=== PATIENT | female | born 1995 | race African-American/Black ===

== ENCOUNTER 2025-03-03 15:31 | Outpatient (CLI) | payer OTHER, SELFPAY ==
--- OUTSIDE RECORDS SUMMARY | 2025-03-03 15:55 | XMS_ITS | Clinical Summary ---
Author Organization [facility] Address [address] [place] [address] Care Team Providers Care Pole Shaver Helper Name Role Phone Rica Robbins DO Unavailable [phone] No, Physician Primary Care Provider [phone] Lindsay Riley MD Unavailable [phone] Allergies No known active allergies Medications vit 18-eelv-ieckm-d saha 27mg iron- 800 mcg-250 mg capsule Take by mouth daily Active cholecalciferol (Vitamin D3) 1,000 unit capsule Take 1 capsule (1,000 Units total) by mouth daily Active docusate sodium (COLACE) 100 mg capsuleIndicati ons:constipatio n,Stool Softener Take 1 capsule (100 mg total) by mouth 2 (two) times a day 30 capsule 4 Active hydrOXYzine (ATARAX) 25 mg tablet Take 1 tablet (25 mg total) by mouth nightly as needed for anxiety 30 tablet 4 Active ibuprofen (ADVIL,MOTRIN) 600 mg tabletIndicatio ns:Cramps Take 1 tablet (600 mg total) by mouth 3 (three) times a day 30 tablet 4 Active Additional Information Patient not taking.Reported on 09/24/2023 oxyCODONE (ROXICODONE) 5 mg immediate release tabletIndicatio ns:Pain Take 1 tablet (5 mg total) by mouth every 4 (four) hours as needed for pain 10 tablet 4 Active Additional Information Patient not taking.Reported on 09/24/2023 polyethylene glycol (MIRALAX) 17 gram/dose bulk powderIndicatio ns:constipation Take 17 g by mouth daily for 14 days 238 g 4 Active Active Problems Problem Noted Date Diagnosed Date care following delivery 07/23 Overview (08/19/2023): 08/18/23, POD#1 (Shayla) S/p uncomplicated rCS EBL 200 cc, Hgb 14.7 pre-op, post-op CBC pending A (+), Rubella immune Vital signs reviewed and normal Ambulating, tolerating PO, voiding spontaneously, lochia moderate, pain controlled MOF: MOC: Possibly POPs VTE ppx: The patient has the following MAJOR risk factors none and the following MINOR risk factors delivery and parity >/=3. enoxaparin 40 mg daily ordered for VTE prophylaxis. Dispo: Continue routine postoperative care. 08/19/23, POD#2 (Shayla) S/p uncomplicated rCS EBL 200 cc, Hgb 14.7 > 12.1 Vital signs reviewed and normal Ambulating, tolerating PO, voiding spontaneously, lochia moderate, pain controlled PP anxiety, difficulty with sleep: improved with atarax PRN, order sent at discharge MOF: MOC: Possibly POPs, for further discussion at PP visit VTE ppx: The patient has the following MAJOR risk factors none and the following MINOR risk factors delivery and parity >/=3. enoxaparin 40 mg daily ordered for VTE prophylaxis. Dispo: Desires discharge home today Delivery with history of 08/17/2023 39 weeks gestation of 08/17/2023 Uterine size-date discrepancy in third trimester 07/04/2023 Supervision of other normal , antepartu m 02/07/2023 History of 02/07/2023 Resolved Problems Problem Noted Date Diagnosed Date Resolved Date PROM with onset of labor wit hin 24 hours of rupture 09/15/2021 02/07/2023 Full-term premature rupture of membranes with onset of labor within 24 hours of rupture 09/15/2021 02/07/2023 Immunizations Immunization Administration Dates Next Due DTP 07/04/1995,03/21/1994,01/13/1994 ,1993 Hep B, Adolescent or Pediatric 08/14/1994,1993,1993 HiB 07/04/1995,03/21/1994,01/13/1994 ,1993 IPV 02/08/2004 MMR 02/08/2004,08/14/1994 OPV 08/14/1994,01/13/1994,1993 Tdap 01/12/2020 Varicella 02/06/2007 Surgical History Surgery Date Site/Laterality Comments SECTION SECTION SECTION 08/17/2023 Medical History Medical History Date Comments No known health problems Anxiety Family History Medical History Relation Name Comments Breast cancer Neg Hx Colon cancer Neg Hx Ovarian cancer Neg Hx Uterine cancer Neg Hx Social History Tobacco Use Types Packs/Day Years Used Date Smoking Tobacco: Never Smokeless Tobacco: Never Alcohol Use Standard Drinks/Week Comments Yes 0 (1 standard drink = 0.6 oz pur e alcohol) AUDIT-C Answer Date Recorded Q1: How often do you have a drink containing alc ohol? Never 09/15/2021 Average Number of Drinks Not on file 022 Q3: How often do you have si x or more drinks on one occasion? Never 09/15/2021 [place] Depression Scale Answer Date Recorded [place] Depression Scale Total 0 09/18/2023 The thought of harming myself has occurred to me . Never 09/18/2023 Personal Safety Answer Date Recorded Have you ever been in or are you currently in a harmful physical or emotional relationship or is someone making you feel afraid or unsafe? 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 Flavio harvey Complications: Intolera nce,Failure to Progress in Second Stage Delivery Location:[facility] 2021 Term 37w 3d 0h 03m 0h 03m 2.505 kg (5 lb 8.4 oz) M CS-LT ranv Spinal N Livin g 8 9 EDIE AARTI BROWNMariia Flavio harvey, Rica Goldman DO Complications:None Delivery Location:[facility] Main C ampus (MHE L AND D PROCEDURE) 2023 Term 39w 0d 0h 02m 0h 02m 2.75 kg (6 lb 1 oz) M C-Sec tion Spinal N Livin g 8 9 Jose LuisTarun ning ritter, Lindsay Russell MD Complications:None Delivery Location:[facility] Main C ampus (MHE L AND D PROCEDURE) Last Filed Vital Signs Vital Sign Reading Time Taken Comments Blood Pressure 102/60 09/24/2023 4:03 PM CDT Pulse 101 08/19/2023 5:49 AM CDT Temperature 36.7 C (98 F) 08/19/2023 5:49 AM CDT Respiratory Rate 18 08/19/2023 5:49 AM CDT Oxygen Saturation 97% 08/19/2023 5:49 AM CDT Inhaled Oxygen Concentration - - Weight 59.4 kg (131 lb) 09/24/2023 4:03 PM CDT Height 162.6 cm (5' 4) 09/24/2023 4:03 PM CDT Body Mass Index 22.49 09/24/2023 4:03 PM CDT Plan of Treatment Health Maintenance Due Date Last Done Comments Varicella Vaccines (2 of 2 - 13+ 2-dose series) 03/06/2007 02/06/2007 Regular Well Visit/Exam 18-64 06/25/2011 HPV Vaccines (1 - 3-dose SCDM series) 2020 Cervical Cancer Screening 02/08/2024 02/07/2023 Depression Screening 09/17/2024 09/18/2023 Influenza Vaccine (#1) 2024 DTaP/Tdap/Td Vaccine (6 - Td or Tdap) 01/11/2030 01/12/2020, 07/04/1995, 03/21/1994, Additional history exists Hepatitis B Screening Completed 08/14/1994 , 01/13/1994, 1993 Hepatitis C Screening Completed 02/07/2023 Pneumococcal vaccine <65 Aged Out No longer eligible based on patient's age to complete this topic Procedures Procedure Name Priority Date/Time Associated Diagnosis Comments HEPATITIS C ANTIBODY Routine 02/07/2023 1:52 PM CDT Encounter for supervision of other normal in first trimester PAP WITH REFLEX TO HIGH RISK HPV Routine 02/07/2023 12:26 PM CDT Screening for malignant neoplasm of cervix from Last 3 Months or Most Recently Relevant to Health Maintenance Results * Hepatitis C antibody Blood (02/07/2023 1:52 PM CDT) Hep C Ab Nonreactive Nonreactive Comment: Interpretive Data Nonreactive: Antibodies to HCV not detected. Does NOT exclude the possibility of recent exposure to HCV. Equivocal: Equivocal for HCV antibodies. Supplemental molecular testing will be automatically performed to determine infection status in accordance with current CDC screening recommendations. Reactive: Positive for HCV antibodies. This may represent current or past HCV infection. Supplemental molecular testing will be automatically performed to determine current infection status in accordance with current CDC screening recommendations. Interpretive data was last revised on 2019. Blood 02/07/2023 1:52 PM CDT 02/07/2023 6:26 PM CDT Morales Nobles MD LAB MICROBIOLOGY - [facility] AL ORDERABLES Final Result [facility] [address] [facility] Department [place] [address] * Pap with reflex to High Risk HPV and Genotyping (Cytology Component) (02/07/2023 12:26 PM CDT) Endocervical (Pap test) 02/07/2023 12:26 PM CDT 02/09/2023 12:26 PM CDT Narrative PATHOLOGY [facility] - 02/13/2023 10:27 AM CDT [facility] Department of Pathology [address] [place] [id number] Final Report Note to Patients: This report may contain a detailed description of human tissue sent by a health care provider to the laboratory for pathologic evaluation. The content of this report is essential for diagnosis and may provide important critical findings. This information may be unfamiliar to patients to review without a medical professional present. It is advised that the patient review this report in the presence of a health care provider who can answer questions and explain the details. Patient Name: RAMONITA GRIMES Address: [address] [place] [address]- Gender: F : 1995 (Age: 27) Service: Location: N : [id number] [facility] #: [id number] Patient Type: [facility] SPECIMEN Taken: 02/07/2023 Received: 02/09/2023 Accessioned:: 02/09/2023 Reported: 02/13/2023 Physician(s): Morales Nobles M.D. [facility] Diagnosis: SOURCE OF SPECIMEN Imaged Thinprep Pap Test w/ Reflex HPV - Emergency Medical Technician Cytologic Material: STATEMENT OF ADEQUACY - Satisfactory for evaluation; endocervical/transformation zone component present GENERAL CATEGORIZATION: - Negative for intraepithelial lesion or malignancy DEBORAH Trevizo(ASCP) Report Electronically Reviewed and Signed Out By DEBORAH Trevizo(ASCP) 02/13/2023 10:27:43Specimen(s) Received: A: Imaged Thinprep Pap Test w/ Reflex HPV - Emergency Medical Technician Cytologic Material Clinical History: Last Menstrual Period: 11/24/2022 The Pap test is a screening test used to aid in the detection of cervical cancer and its precursors. It should not be the sole means by which malignant and premalignant lesions are diagnosed. Both false negative and false positive results may occur. It also has poor sensitivity for the detection of endometrial lesions and should not be used to evaluate suspected endometrial abnormalities. For these reasons it is most important to obtain Pap tests at regular intervals. The performance characteristics of some immunohistochemical stains, fluorescence in-situ hybridization tests and immunophenotyping by flow cytometry cited in this report (if any) were determined by the Surgical Pathology Department at [facility] as part of an ongoing quality management nurse program and in compliance with federally mandated regulations drawn from the Clinical Laboratory Improvement Act of 1988 (CLIA '88). Some of these tests rely on the use of analyte specific reagents and are subject to specific labeling requirements by the US Food and Drug Administration. Such diagnostic tests may only be performed in a facility that is certified by the Department of Health and Human Services as a high complexity laboratory under CLIA '88. The FDA has determined that such clearance or approval is not necessary. This test is used for clinical purposes. It should not be regarded as investigational or for research. Nevertheless, federal rules concerning the medical use of analyte specific reagents require that the following disclaimer be attached to the report: This test was developed and its performance characteristics determined by the Surgical Pathology Department [facility]. It has not been cleared or approved by the U. S. Food and Drug Administration. Morales Nobles MD LAB CYTOLOGY ORDERABLES Final Result PATHOLOGY [facility] from Last 3 Months or Most Recently Relevant to Health Maintenance Insurance [facility] Member Subscriber Plan / Payer (Ef fective 2020-Present) Name:Ramonita Grimes Relation to Subscriber:Spouse Name:HAI GRIMES Date of :1980 (Home) Address: [address] [place] [address] , [address] [address] Payer ID:[id number] (NAIC) Group ID:Not on file Type: Address: [facility] [address] [place] [address] WEST CLAIMS Advance Directives For more information, please contact: [phone] * Full Code (Latest Code Status on File) Date Activated Date Inactivated Comments 08/17/2023 12:04 PM 08/19/2023 4:28 PM * Full Code Date Activated Date Inactivated Comments 08/17/2023 7:46 AM 08/17/2023 12:04 PM Full CPR in case of cardiopulmonary arrest * Full Code Date Activated Date Inactivated Comments 08/17/2023 7:45 AM 08/17/2023 7:46 AM Full CPR in case of cardiopulmonary arrest * Full Code Date Activated Date Inactivated Comments 09/15/2021 8:42 PM 09/17/2021 3:19 PM * Full Code Date Activated Date Inactivated Comments 09/15/2021 9:42 AM 09/15/2021 8:42 PM Care Teams Pole Shaver Helper Relationship Specialty Start Date End Date No, Physician PCP - General 08/17/23 Rica Robbins DO [address] [place] [address] [phone] Consulting Physician Obstetrics and Gynecology 09/17/21 Lindsay Riley MD [address] [place] [address] [phone] Temple Marker Obstetrics and Gynecology 08/19/23
--- OUTSIDE RECORDS SUMMARY | 2025-03-03 15:55 | XMS_ITS | Clinical Summary ---
Author Organization [facility] Address [address] [place] [address] Care Team Providers Care Acute Care Nursing Assistant Name Role Phone Unavailable Primary Care Provider Unavailabl e Source Comments [facility],non-owned Affiliates and Associated Physician Practices is amultiple site organization consisting of ambulatory clinics and hospital sitesin [place], [place], [place] and [place]. This disclosure is being madepursuant to the Care Everywhere program and may not contain all information available regarding this patient. Last updated 18.[facility] Allergies No known active allergies Social History Tobacco Use Types Packs/Day Years Used Date Smoking Tobacco: Never Assessed Comments No Sex and Gender Information Value Date Recorded Sex Assigned at Not on file Legal Sex Female 3:37 PM CDT Gender Identity Not on file Sexual Orientation Not on file Plan of Treatment Health Maintenance Due Date Last Done Comments HIV SCREENING 2008 HEPATITIS C SCREENING 06/20/2011 DTAP/TDAP/TD VACCINES (1 - Tdap) 2012 HEPATITIS B VACCINE (1 of 3 - 19+ 3-dose series) 2012 HPV VACCINE (1 - 3-dose SCDM series) 2020 DEPRESSION SCREENING 04/23/2024 COVID-19 VACCINE ( - 2023-2 5 season) 2024 INFLUENZA VACCINE (#1) 2024 ZOSTER VACCINE (1 of 2) 06/25/2043 HIB VACCINE Aged Out No longer eligi ble based on patient's age to complete this topic MENINGOCOCCAL (Group B) VACC INE SHARED DECISION-MAKING Aged Out No longer eligibl e based on patient's age to complete this topic MENINGOCOCCAL GROUPS A/C/Y/W VACCINE Aged Out No longer eligible b ased on patient's age to complete this topic PNEUMOCOCCAL VACCINE Aged Out No long er eligible based on patient's age to complete this topic Insurance
--- OUTSIDE RECORDS SUMMARY | 2025-03-03 15:55 | XMS_ITS | Clinical Summary ---
Author Organization [facility] Address [address] [place] [address] Care Team Providers Care Athletic Scout Name Role Phone Ashley Silvestre MD Primary Care Provider [phone] Allergies No known active allergies Medications hydrOXYzine (ATARAX) 25 MG tablet Take 1 tablet (25 mg total) by mouth 3 (three) times daily as needed for Anxiety. 15 tablet 11/02/2022 Active Active Problems Problem Noted Date Diagnosed Date Anxiety Immunizations Immunization Administration Dates Next Due Dtp (Generic) 07/04/1995,03/21/1994,01/13/1994 ,1993 Hepatitis B Pediatric 08/14/1994,01/13/1994,10/21 Hib (Generic) 07/04/1995,03/21/1994,01/13/1994 ,1993 MMR (MMRII) 02/08/2004,08/14/1994 Polio IPV (Ipol) 02/08/2004 Polio Opv (Generic) 08/14/1994,01/13/1994,1993 Tdap (Generic) 01/12/2020 Varicella (Varivax) 02/06/2007 Family History Medical History Relation Comments None Father None Mother Relation Status Comments Father Mother Social History Tobacco Use Types Packs/Day Years Used Date Smoking Tobacco: Never Smokeless Tobacco: Never Tobacco Cessation:Counseling Given: Not Answered Alcohol Use Standard Drinks/Week Comments Not Currently 0 (1 standard drink = 0.6 oz pur e alcohol) PHQ-2 Answer Date Recorded PHQ-2 Score - If the patient scores above 3, please move on to questions 3-9 0 03/10/2021 Comments No Sex and Gender Information Value Date Recorded Sex Assigned at Not on file Legal Sex Female 8:14 PM CDT Gender Identity Not on file Sexual Orientation Not on file Last Filed Vital Signs Vital Sign Reading Time Taken Comments Blood Pressure 114/71 11/02/2022 12:20 PM CDT Pulse 77 11/02/2022 12:20 PM CDT Temperature 36.6 C (97.8 F) 11/02/2022 12:20 PM CDT Respiratory Rate 18 11/02/2022 12:20 PM CDT Oxygen Saturation 100% 11/02/2022 12:20 PM CDT Inhaled Oxygen Concentration - - Weight 49.4 kg (109 lb) 11/02/2022 12:20 PM CDT Height 162.6 cm (5' 4) 11/02/2022 12:20 PM CDT Body Mass Index 18.71 11/02/2022 12:20 PM CDT Plan of Treatment Health Maintenance Due Date Last Done Comments Cervical Cancer Screening Pap Smear (Age 30 to 64) Every 3 Years 1993 Hepatitis C 06/25/2011 HPV Vaccines (1 - 3-dose SCDM series) 2020 Annual Physical 03/10/2022 03/10/2021 Cervical Cancer Screening Pap with HPV Testing (Age 30 to 64) Every 5 Years 06/25/2023 Cervical Cancer Screening with HPV 06/25/2023 COVID-19 Vaccine ( season) 2024 Influenza Adult (#1) 2025 DTaP, Tdap and Td Vaccines (6 - Td or Tdap) 01/11/2030 01/12/2020, 07/04/1995, 03/21/1994, Additional history exists Hepatitis B Vaccines Completed 08/14/1994, 01/13/1994, 1993 Hepatitis A Vaccines Aged Out No long er eligible based on patient's age to complete this topic Meningococcal B Vaccine Aged Out No l onger eligible based on patient's age to complete this topic Meningococcal Vaccine Aged Out No susan brandon eligible based on patient's age to complete this topic Pneumococcal Vaccine: Pediatrics (0 to 5 Years) and At-Risk Patients (6 to 49 Years) Aged Out No longer eligible based on patient's age to complete this topic RSV Immunizations Under 20 Months Aged Out No longer eligible based on patient's age to complete this topic Insurance BLUE [employer]OSS [employer]UE [employer] MEDICAID [facility] Care Teams Athletic Scout Relationship Specialty Start Date End Date Ashley Silvestre MD [address] [place] [address] PCP - General FAMILY PRACTICE 03/10/21
--- OUTSIDE RECORDS SUMMARY | 2025-03-03 15:55 | XMS_ITS | Data Portability ---
Author Organization [facility] Address [address] [place] [address] Care Team Providers Care Rehab Nurse Name Role Phone [facility] Lead Care Manager Assessment No assessment recorded. Plan of Treatment Reminders Order Date Submit Date Provider Last Modified By Organization Details Last Modified Time Details Appointments None recorded. Lab pap, LB 2024 025 [place] [facility], [address] [place], [address], 5 17:28:55 HPV E6+E7 mRNA, qualitative PCR, cervix 2024 025 [facility], [address] [place] [address], [address], 5 15:12:12 streptococc us group B, culture, unspecified specimen 2021 022 [place] [facility], [address] [place], [address], 2 10:02:58 Referral None recorded. Procedures None recorded. Surgeries None recorded. Imaging XR, ankle, 3 or more view - recurrent fdc right ankle pain 2021 022 [facility], [address] [place] [address], [address], 2 17:21:25 Medication Orders None recorded. Patient TargetsNo targets recorded. Patient Instructions Encounter Date Encounter Id Patient Instructions Last Modified By Organization Details Last Modified Time 10/28/2021 [id number] edinburgh depression scale* [email or web address] Not available 11/24/2021 10:08:37 control after counseling [email or web address] Not available 10/28/2021 10:46:35 12/24/2024 [id number] body mass index: care instructions Not available 12/24/2024 16:07:50 learning about control Not available 12/24/2024 16:07:50 Reason for Referral None Reported. Results Created Date Observation Date Name Description Value Unit Range Abnormal Flag Note LastModifiedBy Organization Detail LastModifiedTime 09/06/19 22 09/08/2021 STREP TOCOC CUS, GROUP B CULTU RE streptococcu s, group B culture SEE NOTE STREP TOCOC CUS, GROUP B CULTU RE Micro Numbe r: [id number] Test Statu s: Final Speci men Sourc e: Vagin al/an orect al Speci men Quali ty: Adequ ate Resul t: No group B Strep tococ cus isola fay Note per CDC guide lines optim al recov martin is achie owen by swabb ing both the lower vagin a and rectu m (thro ugh the anal sphin cter) . Not Available [facility] [address] [place], [address], 09/08/2021 10:02:58 12/25/19 25 12/25/2024 HPV HIGH RISK HPV high risk Negati ve negati ve normal The HPV High Risk assay is inten ded for use as co-te sting with cytol ogy and not as a subst itute for regul ar cervi shreya cytol ogy scree eddie. This assay is not inten ded for use as a scree eddie devic e for women under age 30 with kathryn l cervi shreya cytol ogy. Not Available [facility] [address] [place], [address], 12/25/2024 15:12:12 12/25/19 25 12/30/2024 THINP REP TIS PAP clinical information: normal None given Not Available [facility] [address], [address], 12/30/2024 17:28:55 12/25/1912/30/2024 THINP REP TIS PAP LMP: normal NONE GIVEN Not Available [address], [address], 12/30/2024 17:28:55 12/25/1912/30/2024 THINP REP TIS PAP prev. Pap: normal NONE GIVEN Not Available [address], [address], 12/30/2024 17:28:55 12/25/1912/30/2024 THINP REP TIS PAP prev. BX: normal NONE GIVEN Not Available [address], [address], 12/30/2024 17:28:55 12/25/1912/30/2024 THINP REP TIS PAP source: normal Cervi x Not Available [address], [address], 12/30/2024 17:28:55 12/25/1912/30/2024 THINP REP TIS PAP statement of adequacy: normal Satis facto ry for evalu ation . Endoc ervic al/tr ansfo rmati on zone compo nent prese nt. Age and/o r menst rual statu s not provi ded Not Available [address], [address], 12/30/2024 17:28:55 12/25/1912/30/2024 THINP REP TIS PAP interpretati on/result: normal Cytol ogy Resul ts: Negat juan for intra epith elial lesio n or malig yeimi . Not Available [address] [place], [address], 12/30/2024 17:28:55 12/25/192025 THINP REP TIS PAP comment: normal This Pap test has been evalu ated with the ThinP rep(R ) Imagi ng Syste m. Not Available [facility] [address] [place], [address], 12/30/2024 17:28:55 12/25/19 25 12/30/2024 THINP REP TIS PAP cytotechnolo gist: normal MEF, CT( CP) CT Scree eddie Locat ion: [facility] , [facility] [place] [address] CLIA: [id number] Slide prepa ratio n perfo rmed at: [facility], [address] [place], [address] CLIA: [id number] Not Available [facility] [address], [place], [address], 12/30/2024 17:28:55 12/25/19 25 12/30/2024 THINP REP TIS PAP comment EXPLA NATOR Y NOTE: The Pap is a scree eddie test for cervi shreya cance r. It is not a diagn ostic test and is subje ct to false negat juan and false posit juan resul ts. It is most relia ble when a satis facto ry sampl e, regul mina obtai marge, is submi tted with relev ant clini shreya findi ngs and histo ry, and when the Pap resul t is evalu ated along with histo juan and curre nt clini shreya infor matio n. Not Available [facility] [employer] [facility] [address], [place], [address], 12/30/2024 17:28:55 08/09/19 22 08/08/2021 US, obste tric, limit ed No observ ation record ed. [email or web address] [facility] [address], [place], [address], 08/08/2021 14:15:31 08/25/19 22 08/24/2021 US, obste tric, follo w-up No observ ation record ed. [facility] [address], [place], [address], 08/24/2021 23:00:25 09/07/19 22 09/06/2021 imagi ng/di agnos tic resul t No observ ation record ed. [email or web address] [facility] [address] [place], [address], 09/07/2021 18:24:03 11/02/19 22 10/31/2021 XR, ankle , 3 or more view No observ ation record ed. [email or web address] [facility] [address] [place], [address], 11/02/2021 14:55:05 Result Notes None recorded. Problems Name Problem SNOMED Code Status Onset Date Resolution Date Notes Provider Name and Address Organization Details Recorded Time Syphilis test finding 194994308 Completed 201405/25/2015 Encounte r for screenin g for infectio ns with a predomin antly sexual mode of transmis hailee; Progress : Stable Added By: Lea Lemus Add to Current Problems : NO ProblemS tatus: Resolve Not Available [facility] 2 20:36:03 Family history of breast cancer 140998748 Completed 201406/06/2019 Family history of breast cancer; Progress : Stable Added By: Perla Fontenot Add to Current Problems : NO ProblemS tatus: Resolve Family history of malignan t neoplasm of breast; Progress : Stable Added By: Perla Fontenot Add to Current Problems : NO ProblemS tatus: Resolve Not Available [facility] 2 20:36:01 At high risk of sexually transmit fay infectio n 132571084 Completed 201405/25/2015 STD Screenin g; Location : None Severity : Moderate Progress : Stable Added By: Lea Lemus Add to Current Problems : YES ProblemS tatus: Resolve Not Available [facility] 1 19:50:32 Family history of malignan t neoplasm of breast in first degree relative 847076873 Completed 201405/27/2021 Family history of breast cancer; Location : None Severity : Moderate Progress : Stable Added By: Perla Fontenot Add to Current Problems : YES ProblemS tatus: Current Margie arellano, [facility] 2 14:34:37 Acute vaginiti s 48467984 Completed 201405/25/2015 Acute vaginiti s; Progress : Stable Added By: Lea Lemus Add to Current Problems : NO ProblemS tatus: Resolve Bacteria l vaginosi s; Location : None Progress : Stable Added By: Lea Lemus Add to Current Problems : YES ProblemS tatus: Resolve Not Available [facility] 2 20:36:07 Gestatio n less than 9 weeks 464709718 Completed 201912/31/2019 Less than 8 weeks gestatio n of pregnanc y; Progress : Stable Added By: Tami Mendez Add to Current Problems : NO ProblemS tatus: Resolve Not Available [facility] 2 20:35:59 Pregnanc y, childbir th and puerperi um finding Completed 201912/31/2019 Encounte r for supervis ion of normal first pregnanc y, first trimeste r; Progress : Stable Added By: Tami Mendez Add to Current Problems : NO ProblemS tatus: Resolve Not Available [facility] 2 20:36:01 Gestatio n period, 12 weeks 10035191 Completed 201912/31/2019 12 weeks gestatio n of pregnanc y; Progress : Stable Added By: Tami Mendez Add to Current Problems : NO ProblemS tatus: Resolve Not Available [facility] 2 20:36:06 Atypical squamous cells of undeterm ined signific ance on cervical Papanico laou smear 841017445 Completed 201912/13/2020 Atypical squamous cells of undeterm ined signific ance on cytologi c smear of cervix (ASC-US) ; Progress : Stable Added By: Rica Robbins Add to Current Problems : NO ProblemS tatus: Resolve Not Available [facility] 2 20:36:01 Pregnanc y, childbir th and puerperi um finding Completed 201912/31/2019 Encounte r for supervis ion of normal first pregnanc y, second trimeste r; Progress : Stable Added By: Rica Robbins Add to Current Problems : NO ProblemS tatus: Resolve Not Available [facility] 2 20:35:58 Gestatio n period, 16 weeks 93221478 Completed 201912/31/2019 16 weeks gestatio n of pregnanc y; Progress : Stable Added By: Lindsay Smith Add to Current Problems : NO ProblemS tatus: Resolve Not Available [facility] 2 20:36:05 Baseline bradycar shandra 617198507 Completed 201912/31/2019 Diseases of the circulat ory system complica ting pregnanc y, unspecif ied trimeste r; Progress : Stable Added By: Val Sarah Add to Current Problems : NO ProblemS tatus: Resolve Not Available [facility] 2 20:36:02 Gestatio n period, 20 weeks 12240188 Completed 201912/31/2019 20 weeks gestatio n of pregnanc y; Progress : Stable Added By: Wilber Casas Add to Current Problems : NO ProblemS tatus: Resolve Not Available [facility] 2 20:36:07 Antenata l screenin g for malforma tion Completed 201912/31/2019 Encounte r for antenata l screenin g for malforma tions; Progress : Stable Added By: Wilber Casas Add to Current Problems : NO ProblemS tatus: Resolve Not Available [facility] 2 20:36:00 Gestatio n period, 24 weeks 450604790 Completed 201912/31/2019 24 weeks gestatio n of pregnanc y; Progress : Stable Added By: Rica Robbins Add to Current Problems : NO ProblemS tatus: Resolve Not Available [facility] 2 20:36:05 Pregnanc y, childbir th and puerperi um finding Completed 201901/19/2020 Encounte r for supervis ion of normal first pregnanc y, third trimeste r; Progress : Stable Added By: Val Sarah Add to Current Problems : NO ProblemS tatus: Resolve Not Available [facility] 2 20:36:04 Gestatio n period, 28 weeks 31608938 Completed 201912/31/2019 28 weeks gestatio n of pregnanc y; Progress : Stable Added By: Rica Robbins Add to Current Problems : NO ProblemS tatus: Resolve Not Available [facility] 2 20:36:03 Gestatio n period, 30 weeks 12805383 Completed 201912/31/2019 30 weeks gestatio n of pregnanc y; Progress : Stable Added By: Emily Childs Add to Current Problems : NO ProblemS tatus: Resolve Not Available [facility] 2 20:36:00 Uterine size for dates discrepa ncy Completed 201912/31/2019 Uterine size-dominick e discrepa ncy, third trimeste r; Progress : Stable Added By: Rica Robbins Add to Current Problems : NO ProblemS tatus: Resolve Not Available [facility] 2 20:36:04 Gestatio n period, 32 weeks 8936718 Completed 201912/31/2019 32 weeks gestatio n of pregnanc y; Progress : Stable Added By: Rica Robbins Add to Current Problems : NO ProblemS tatus: Resolve Not Available [facility] 2 20:36:05 Gestatio n period, 34 weeks 31223825 Completed 201912/31/2019 34 weeks gestatio n of pregnanc y; Progress : Stable Added By: Rica Robbins Add to Current Problems : NO ProblemS tatus: Resolve Not Available [facility] 2 20:36:01 Gestatio n period, 36 weeks 40461754 Completed 201912/31/2019 36 weeks gestatio n of pregnanc y; Progress : Stable Added By: Lindsay Smith Add to Current Problems : NO ProblemS tatus: Resolve Not Available [facility] 2 20:36:00 Antenata héctor zhao Completed 201912/31/2019 Encounte r for antenata l screenin g for Streptoc occus B; Progress : Stable Added By: Lindsay Smith Add to Current Problems : NO ProblemS tatus: Resolve Encounte r for other specifie d antenata l screenin g; Progress : Stable Added By: Val Sarah Add to Current Problems : NO ProblemS tatus: Resolve; Start Date : 06/06/19 20 Not Available [facility] 2 20:36:02 Gestatio n period, 37 weeks 24658480 Completed 201901/19/2020 37 weeks gestatio n of pregnanc y; Progress : Stable Added By: Deb Painting Add to Current Problems : NO ProblemS tatus: Resolve Not Available [facility] 2 20:36:06 Gestatio n period, 38 weeks 48248914 Completed 201901/19/2020 38 weeks gestatio n of pregnanc y; Progress : Stable Added By: Val Sarah Add to Current Problems : NO ProblemS tatus: Resolve Not Available [facility] 2 20:36:03 Delivery by elective section 371009600 Completed 201902/16/2020 Encounte r for delivery without indicati on; Progress : Stable Added By: Rica Robbins Add to Current Problems : NO ProblemS tatus: Resolve Not Available [facility] 2 20:35:59 Procedur e on genitour inary system Completed 201902/16/2020 Encounte r for surgical aftercar e followin g surgery on the genitour inary system; Progress : Stable Added By: Rica Robbins Add to Current Problems : NO ProblemS tatus: Resolve Not Available [facility] 2 20:36:07 Postoper ative care Completed 201902/16/2020 Encounte r for surgical aftercar e followin g surgery on the genitour inary system; Progress : Stable Added By: Rica Robbins Add to Current Problems : NO ProblemS tatus: Resolve Not Available [facility] 2 20:36:07 Lochia finding Completed 201912/13/2020 Encounte r for routine postpart um follow-u p; Progress : Stable Added By: Rica Robbins Add to Current Problems : NO ProblemS tatus: Resolve Not Available [facility] 2 20:35:59 Human papillom avirus deoxyrib onucleic acid detected , high risk on cervical specimen 761086231 Completed 201912/13/2020 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 ; Progress : Stable Added By: Rica Robbins Add to Current Problems : NO ProblemS tatus: Resolve Not Available [facility] 2 20:35:58 Sampling of vagina for Papanico laou smear Completed 202012/13/2020 Encounte r for gynecolo gical examinat ion (general ) (routine ) without abnormal findings ; Progress : Stable Added By: Rica Robbins Add to Current Problems : NO ProblemS tatus: Resolve Not Available [facility] 2 20:36:06 Finding of regulari ty of menstrua l cycle Completed 202005/27/2021 Irregula r menstrua tion, unspecif ied; Severity : Moderate Progress : Stable Added By: Bushra Draper Add to Current Problems : YES ProblemS tatus: Current Margie Icenogle null, [email or web address] [facility] 2 14:34:41 Miscarri age 15600252 Completed 202005/27/2021 Complete or unspecif ied spontane ous without complica tion; Severity : Moderate Progress : Stable Added By: Pedro Luis Beavers Add to Current Problems : YES ProblemS tatus: Current Margie Icenogle null, [email or web address] 2 14:34:44 Screenin g for malignan t neoplasm of cervix Active 2020 Encounte r for screenin g for malignan t neoplasm of cervix; Progress : Stable Added By: Rica Robbins Add to Current Problems : YES ProblemS tatus: Current Not Available [facility] 2 20:35:58 Pregnanc y [id number] Completed 202010/28/2021 Rica Robbins DO [address] [facility] [place], [address] , [facility] [employer] [facility] 2 11:42:02 Notes:STD Screening (V74.5) ; OnsetDate: 03/26/2015; ResolvedDate: 05/25/2015; Progress: Stable Added By: Lea Rutherford Add to Current Problems: NO ProblemStatus: Resolve Problem Notes None recorded. Procedures Surgical History Date Name Laterality Status Provider Name and Address Organization Details Recorded Time 2 Suture/Stapl e removal completed Rica Robbins DO [address] [facility], [place], [address], [facility] [employer] 09/25/2021 15:19:16 1 Date of Last Pap Smear completed Bushra Draper [facility] 03/28/2021 15:07:34 C Section completed Azalea Chiua [facility] 12/24/2024 15:20:18 Imaging Results None recorded. Procedure Notes None recorded. Medical Equipment None Reported. Allergies No known drug allergies Medications Name Sig Start Date Stop Date Status Note LastModified by Organization Details LastModified Time ibuprofen 800 mg tablet 09/28 completed Not Available Not Available Not Available Reglan 10 mg tablet take 1 tablet (10 mg) by oral route 3 times per day 09/28 completed Reglan 10 mg oral tablet RxNorm: [id number] Allow Substitu tion: True Refill Denied: No Refill DateOccu rred: 03/16/20 Edited by: Analilia Ordoñez ) on 03/16/20 Stopped by: Analilia Ordoñez ) on Not Available Not Available Not Available oxycodone -acetamin ophen 5 mg-325 mg tablet TAKE 1 TABLET BY MOUTH EVERY 4 HOURS FOR UP TO 7 DAYS NEEDED FOR PAIN 09/28 completed Not Available Not Available Not Available Metrogel Vaginal 0.75 % (37.5 mg/5 gram) insert 1 applicat orful (37.5 mg) by vaginal route 1 times per day in the evening 09/28 completed Metrogel VaginaL 0.75 % Vaginal Gel RxNorm: [id number] Allow Substitu tion: True Refill Denied: No Edited by: Cristy Howard ) on 09/29/19 Stopped by: jesse(Cristy Lambert ) on 09/29/19 Not Available Not Available Not Available Flagyl 500 mg tablet 1 PO BID x7 days 05/25 completed Flagyl 500mg Tablet RxNorm: [id number] Allow Substitu tion: True Refill Denied: No For Problem: Bacteria l vaginosi s Not Available Not Available Not Available 12/13 completed Allow Substitu tion: False Refill Denied: No Refill DateOccu rred: 06/06/19 20 Edited by: pee( Bushra Draper) on 12/14/19 Stopped by: pee( Bushra Draper) on 12/14/19 Not Available Not Available Not Available Multivita mins 06/06 completed Multivit amins Allow Substitu tion: True Refill Denied: No Refill DateOccu rred: 03/26/20 15 Edited by: Tami Solorzano ) on 06/06/19 Stopped by: marci( Tami Mendez ) on 06/06/19 Not Available Not Available Not Available Xulane 150 mcg-35 mcg/24 hr transderm al patch apply 1 patch by transder mal route once weekly 12/13 completed Xulane 150-35 mcg/24 hr Transder mal Patch, Transder mal Weekly RxNorm: [id number] Allow Substitu tion: True Refill Denied: No Edited by: pee( Bushra Draper) on 12/14/19 Stopped by: pee( Bushra Draper) on 12/14/19 Not Available Not Available Not Available Nuvessa 1.3 % (65 mg/5 gram) vaginal gel insert 1 applicat orful (65 mg) by vaginal route once at bedtime 09/28 completed Nuvessa 1.3 % Vaginal Gel RxNorm: [id number] Allow Substitu tion: True Refill Denied: No Edited by: Cristy Howard ) on 09/29/19 Stopped by: jesse(Cristy Lambert ) on 09/29/19 Not Available Not Available Not Available Vitamin B12 06/06 completed Vitamin B12 Allow Substitu tion: True Refill Denied: No Refill DateOccu rred: 03/26/20 Edited by: marci( Tami Mendez ) on 06/06/19 Stopped by: marci( Tami Mendez ) on 06/06/19 Not Available Not Available Not Available Vitals Date Recorded Body height Body mass index (BMI) Body weight Body temperature Systolic And Diastolic Provider Name and Address Organization Details Last Updated DateTime 09/05/2021 162.56 cm 22.8 kg/m2 91854.0 22403 g 97.6 [degF] 110/64 mm[Hg] Kirsty Willt [facility] 11:16:51 Date Recorded Body weight Provider Name an d Address Organization Details Last Updated DateTime 09/14/2021 10338.61212 g Rica Robbins DO [address] [place] [address], [address], [place] [facility] 09/14/2021 15:02:33 Date Recorded Body height Body mass index (BMI) Body temperature Systolic And Diastolic Provider Name and Address Organization Details Last Updated DateTime 09/14/2021 162.56 cm 23.2 kg/m2 97.8 [degF] 118/76 mm[Hg] Margieheidi Randhawa [facility] 09/14/2021 14:03:11 Date Recorded Body height Body mass index (BMI) Body weight Body temperature Systolic And Diastolic Provider Name and Address Organization Details Last Updated DateTime 09/28/2021 162.56 cm 21 kg/m2 23062.9 9 g 97.5 [degF] 114/70 mm[Hg] Kristi Orourke [facility] 2 10:07:10 Date Recorded Body weight Provider Name an d Address Organization Details Last Updated DateTime 10/28/2021 82918.0844 g Rica Robbins DO [facility] [place], [address], [place] [employer] [facility] 10/28/2021 11:42:00 Date Recorded Body height Body mass index (BMI) Body temperature Systolic And Diastolic Provider Name and Address Organization Details Last Updated DateTime 10/28/2021 162.56 cm 20.6 kg/m2 97 [degF] 110/60 mm[Hg] Familia Christine [facility] [employer] [facility] 10/28/2021 10:26:20 Date Recorded Body weight Body mass index (BMI) Body height Systolic And Diastolic Provider Name and Address Organization Details Last Updated DateTime 12/24/2024 44869.22 g 26.4 kg/m2 162.56 cm 116/76 mm[Hg] Azalea Mcmanus [facility] [employer] [facility] 12/24/2024 15:22:33 Social History Question Answer Notes LastModified by [employer] Details LastModified Time Tobacco Smoking Status Never Smoker Bushra arellano, [facility] [employer] [facility] 03/28/2021 15:01:48 If You Are , What Was Your Level Of Alcohol Consumption Prior To ? None Information not available 06/13/2021 Are You Blind Or Do You Have Difficulty Seeing? No Information not available 05/03/2021 Are You Deaf Or Do You Have Serious Difficulty Hearing? No Information not available 05/03/2021 What Type Of Diet Are You Following? REGULAR Information not available 06/13/2021 How Many Children Do You Have? 3 [email or web address] Information not available 12/24/2024 What Is Your Relationship Status? Information not available 03/28/2021 Are You Sexually Active? Yes Information not available 03/28/2021 Sex: Unknown Functional Status Question Answer Note LastModified by [employer] Details LastModified Time How many times per week do you consume alcohol? Less than 1 time per week [email or web address] Information not available 12/24/2024 Do you use any illicit or recreational drugs? No Information not available 05/03/2021 Do you or have you ever used any other forms of tobacco or nicotine? No Information not available 06/13/2021 What is your level of alcohol consumption? Occasional [email or web address] Information not available 12/24/2024 Do you or have you ever used e-cigarettes or vape? Never used electronic cigarettes Information not available 03/28/2021 What is your exercise level? Moderate Information not available 03/28/2021 Mental Status None recorded. Family History Relationship Description Onset Age of this Age Resolved Age Notes LastModified by Organization Details LastModified Time Father No current problems or disability [email or web address] Not available 08/08 12:29:49 Mother No current problems or disability [email or web address] Not available 08/08 12:29:49 Medical History Condition Response Other Cancer N High Blood Pressure N Colon Cancer N Cytomegalovirus N Hyperthyroidism N MRSA N Blood Transfusion N Herpes (HSV) N Breast Cancer N Lung Cancer N Depression N Hypothyroidism N Incontinence N Panic Attacks N Neurological Disorder N Deep Vein Thrombosis N Anxiety Disorder N Autoimmune disease N Arthritis N Shingles N Tuberculosis/Positive PPD N Polycystic Ovarian Syndrome N Cervical Cancer N Chlamydia N Hematuria N Stroke N Varicosities N Seasonal allergies N Crohn's Disease N Alzheimer's/Dementia N COPD/Emphysema N Endometriosis N HPV/Genital Warts N IBS (Irritable Bowel Syndrome) N History of Abnormal Pap N High Cholesterol N Liver Disease N Kidney Infection N Fibromyalgia N Ulcer N Kidney Disease N HIV N Gallbladder disease N Von Willebrand disease N Sickle Cell Disease/Trait N ADD/ADHD N Eating Disorder N Diabetes Mellitus (non-insulin dependent ) N Anemia N Ovarian Problems N Multiple Sclerosis N Gonorrhea N Frequent Urinary Tract infections N Osteopenia N Headaches/migraines N GERD (reflux) N Ovarian Cancer N Diabetes (insulin dependent) N Seizures/Epilepsy N Fibroids N Asthma N Heart Attack N Endometrial Cancer N Lupus N Rubella N Blood Clotting Disorder N Bipolar Disorder N Diabetes Mellitus (during ) N Ulcerative Colitis N Hepatitis N Heart Disease N Pulmonary Embolism N RPR N Chicken Pox N Osteoporosis N Gynecological History Statement/Question Response Flow Moderate Frequency of Cycle (Q days) 27 Date of LMP 11/30/2024 HPV Vaccine N Date of Last Pap Smear 01/10/2021 Duration of Flow (days) 4 Most Recent Mammogram Current Control Method None Age at Menarche 14 Obstetrics History GPAL:G 3 P 3 0 0 3 Type Value Full Term 3 Living 3 Total 3 Past Encounters Encounter ID Performer Location Encounter Start Date Encounter Closed Date Diagnosis/Indication Diagnosis SNOMED-CT Code Diagnosis ICD10 Code Diagnosis IMO Codes Diagnosis Note [id number] Rica Robbins DO [facility] [address] [place] [address] 03/28/2021 14:23:58 04/11/2021 13:18:30 test positive 875900379 Z32.01 [id number] Rica Robbins DO [facility] [address] [place] [address] 04/08/2021 14:35:04 04/18/2021 14:04:08 Routine care 797495741 Z34.82 [id number] Emily Childs, [facility] [address] [place] [address] 05/03/2021 14:43:45 05/07/2021 19:42:30 Normal in multigravida 9751581279 51305 Z34.82 Gestation period, 18 weeks 66436994 Z3A.18 SAB precaution s given. FM awareness discussed. F/u in L&D if experienci ng leaking fluid, cramping not relieved by rest and fluids, bleeding with or without cramping; fever 100.4 x 24 hrs or 101 or greater anytime. [id number] Rica Robbins DO [place] [place] [address] 05/09/2021 17:10:31 05/11/2021 07:16:37 Routine care 128471703 Z34.82 [id number] MARILEE CINDY [address] [address] 05/16/2021 11:39:18 05/16/2021 13:51:31 screening for malformation 867036561 Z36.3 Gestation period, 20 weeks 32208500 Z3A.20 Normal pre gnancy in multigravida 6929096468 23973 Z34.[id number] [facility] [address] [place] [address] 05/30/2021 09:45:16 06/02/2021 14:31:13 Bleeding from female genital tract during [id number] 8722001 O46.92 [id number] Rica Robbins, DO [facility] [address] [place] [address] 06/13/2021 11:54:33 06/13/2021 13:00:45 Routine care 221489205 Z34.82 [id number] Rica Robbins, DO [facility] [address] [place] [address] 07/11/2021 11:54:50 07/11/2021 12:51:13 Routine care 958359131 Z34.83 Diabetes m ellitus screening 941679669 Z13.1 [id number] Rica Robbins, DO [facility] [address] [place] [address] 07/25/2021 15:53:38 07/26/2021 09:04:30 Routine care 429276233 Z34.83 [id number] Rica Robbins, DO [facility] [address] [place] [address] 08/08/2021 11:27:08 08/08/2021 14:31:31 Routine care 309652545 Z34.83 Uterine si ze for dates discrepancy 818915456 O26.849 Growth US and 4D [id number] Rica Robbins, DO [facility] [address] [place] [address] 08/24/2021 16:38:26 08/25/2021 09:23:29 Routine care 675578597 Z34.83 Small for gestational age fetus 988214569 O36.5999 [id number] Rica Robbins, DO [facility] [address] [place] [address] 09/05/2021 10:52:01 09/05/2021 11:53:43 Routine care 890611686 Z34.83 screening 2437 13620 Z36.85 [id number] Rica Robbins, DO [facility] [address] [place] [address] 09/14/2021 13:32:54 09/14/2021 15:21:59 Routine care 975200654 Z34.83 [id number] Rica Robbins, DO [facility] [address] [place] [address] 09/28/2021 09:57:47 09/28/2021 10:35:19 Postoperative visit 889364068 Z09 [id number] Rica Robbins DO [facility] [address] [place] [address] 10/28/2021 10:20:51 10/28/2021 12:40:39 state 50894303 Z39.2 Pain of ri ght ankle joint 0143517486 [id number] M25.373 [id number] SLY YOUNGNEELAM [facility] [address] [place] [address] 12/24/2024 15:00:46 12/25/2024 14:21:21 Gynecologic examination 21263199 Z01.419 -Normal WWE- Recommend Annual WWE-Pap Collected today-Disc ussed ASCCP guidelines for pap collection - Routine labs done with PCP- Mammo at age 40, no increased risk- Depression screen NEG- BMI counseling , diet and exercise reviewed-D ietary supplement s: multivitam in, Vit D, fish oilRTO for annual or PRN Screening for malignant neoplasm of cervix 962947366 Z12.4 Surveillan ce of contraception 794436006 Z30.40 Pt considerin g tubal ligation is unsure at this time. If decides on tubal will call office and make appt with MD for surgical consult. Depression screening 171 787931 Z13.31 See Intake Screening - PHQ Health Concerns Section Related Observation LastModified by Organization Detai ls LastModified Time None Recorded Concern Status LastModified by Organization Details LastModified Time None Recorded Advance Directives Directive None Recorded Payers Insurance Date Sequence Insurance Name Policy Number Policy Bautista Covered Member ID Bautista Member ID Guarantor Name 04/06/2021 1 [employer] () Ramonita Grimes [id number] Ramonita Grimes 12/24/2024 1 [employer] () Ramonita Grimes [id number] Ramonita Cornelio 05/10/2021 1 AFSA - ( SUPPLEMENT) Ramonita Cornelio [id number] Ramonita Cornelio 12/24/2024 1 [place] [facility] PRIOR TO 11/21/2024 (MEDICAID REPLACEMENT - HMO) [id number] Tarun Pelaez Cornelio [id number] Ramonita Cornelio 05/24/2022 1 UNSPECIFIED REMIT PAYOR Ramonita Cornelio 12/24/2024 2 [place] [facility] Ramonita Cornelio [id number] Ramonita Cornelio 12/24/2024 1 [place] () Ramonita Cornelio [id number] Ramonita Cornelio Notes Date Note Type Note Provider Name and Address Organization Details Recorded Time 2 text/html Patient is a @ 36.0 weeks gestation who presents for BASILIA visit. +FM, no lof, no ctxs,Patient desires to have a medication aide at her delivery, desire Rica Andrea Robbins DO [address] [place] [address], [phone], [facility] [employer] 09/05/2021 13:25:07 2 text/html Patient is a @ 37.2 weeks gestation who presents for BASILIA visit. +FM, no lof, having ctxs,Patient desires to have a medication aide at her delivery, desire Rica Andrea Robbins DO [address] [place] [address], [phone], [facility] [employer] [facility] 09/14/2021 15:03:07 2 text/html Post-OpReported by PatientHPIFor onset/timing, patient reportsdate of surgery: (september 15, 2021). For associated symptoms, patient reportsincision healing well,normal bowel function, andno pain. Patient presents for post-op visit. Procedure performed: RLTCS, Date: 09/15/21, Surgeon: Dr Robbins , Diagnosis: Prior x 1, early labor, request repeat , Post op course: uncomplicatedPt wants to discuss other control options for the future, no other complaints or concerns today Rica Robbins DO [address] [facility] [address], [place], [address], [facility] [employer] 09/28/2021 12:50:18 2 text/html VisitReported by PatientHPIFor associated symptoms, patient reportsno abnormal bleeding,no vaginal discharge,no pelvic pain,laceration well healed,no constipation,no fecal incontinence,no dysuria,no urinary incontinence,no fever,no problems,no mastitis, andnormal mood. Post-OpReported by PatientHPIFor associated symptoms, patient reportsincision healing well,no fatigue,normal appetite,normal bowel function,no constipation,no nausea,no emesis,pain improving,no pain,no fever,no bleeding,no lower extremity edema/pain, andno dysuria/urinary symptoms. Patient presents for / post-op visit. Procedure performed: RLTCS, Date: 09/15/21, Surgeon: Dr Robbins , Diagnosis: Prior x 1, early labor, request repeat , Post op course: uncomplicated, needs EPDS today Rica Andrea Robbins DO [facility], [place], [address], [facility] [employer] 10/28/2021 11:42:17 5 text/html Annual GYNReported by PatientHistoryFor history, patient reportsno gynecologic complaints.Genitourinary symptomsFor menstrual cycle, patient reportsnormal menses. For urinary symptoms, patient reportsno hematuriaandno incontinence. For vulva, patient reportsno genital lesion. For vagina, patient reportsnormal vaginal discharge.Breast symptomsFor breast, patient reportsno breast pain,no breast lump, andno nipple discharge.Endocrine symptomsFor sexual complaints, patient reportsno sexual complaints,no pain during intercourse, andnormal libido. For menopausal symptoms, patient reportsno menopausal symptomsandnormal vaginal lubrication.Psychological symptomsFor psychological symptoms, patient reportsno depression,no anxiety, andno pmdd.Preventative measuresFor preventive measures, patient reportsencourage self breast examinationandencourage regular mammograms starting age 40.ROS as noted in the HPI Ramonita is a 29 y.o. here for annual exam.-LMP: 11/30/24-Last Pap: 01/10/21- Contraception: None-PHQ: 0Denies family hx of breast, uterine, cervical, or ovarian cancers. History of maternal aunt with breast cancer at age 35 documented in previous chart but pt denies this history. SLY YOUNG, NEELAM [address], [place], [address], [facility] 12/24/2024 16:08:52 OBGyn Episode Ob Episode Information Episode Created Date Number of Fetuses Patient Bloodtype Patient rh Status Prepregnancy Weight lbs Domestic Partner Domestic Partner Phone Father Name Boring Machine Set Up Operator Jig Status 03/28/20 21 1 CLOSED Fetus Data First Name Last Name Admitted to NICU Weight (g) Sex Living Outcome Pediatric Complications Fetus ID Race Codes Race Delivery Type 3061.74 6 M Full Term 21051 Primary Sacha Calculation Initial Sacha Date Initial Exam Date Initial Exam Provider Initial Ultrasound Date Last Menstrual Period Date Ultra Sound Weeks Gestation 0 Eighteen To Twenty Week Sacha Update Ultra Sound Date Fundal Height At Umbil Quickening Date Ultra Sound Latest Weeks Gestation Final Sacha Confirmed By Final Sacha Confirmed Date Final Sacha Date Ultra Sound Latest Days Gestation 0 0 Menstrual History Last Menstrual Date Menses Monthly On Bcp Conception Prior Menses Frequency Hcg Plus Date Menarche Onset Age Delivery Information Delivery Date Delivery Type Labor Anesthesia Weeks Gestation Incision Type Labor Labor Length Hrs Delivered By Post Complications Tubal Sterilization Discharge Date Comments 0 Regional-Sp inal 39 Discharge Information Feeding Method Contraceptive Method Maternal HG B and HCT Levels Ob Episode Information Episode Created Date Number of Fetuses Patient Bloodtype Patient rh Status Prepregnancy Weight lbs Domestic Partner Domestic Partner Phone Father Name Boring Machine Set Up Operator Jig Status 03/28/20 21 1 A Positive CLOSED Fetus Data First Name Last Name Admitted to NICU Weight (g) Sex Living Outcome Pediatric Complications Fetus ID Race Codes Race Delivery Type Ck Bailey s false 2494.75 6 M true Full Term [id number] 2057-6 Afric an Ameri can Repeat Sacha Calculation Initial Sacha Date Initial Exam Date Initial Exam Provider Initial Ultrasound Date Last Menstrual Period Date Ultra Sound Weeks Gestation 10/03/2021 03/28/2021 03/28/2021 13 Eighteen To Twenty Week Sacha Update Ultra Sound Date Fundal Height At Umbil Quickening Date Ultra Sound Latest Weeks Gestation Final Sacha Confirmed By Final Sacha Confirmed Date Final Sacha Date Ultra Sound Latest Days Gestation 0 0 Pre-miriam Flowsheet Flowsheet Date 03/28/2021 Alvarenga Score Blood Edema Fundus Height Fundus Units Glucose Ketones Leukocytes Nitrite Labor Signs Protein Cervic Dilation Cervic Effacement Cervic Station none Type Weight in lbs Pre/Post Dialysis Refused Weight 113.126790145833 BP Diastolic BP Location Tested BP Systolic BP Type 58 104 Fetus Heart Rate Present A 160 Fetus Movement Comments Flowsheet Date 04/08/2021 Alvarenga Score Blood Edema Fundus Height Fundus Units Glucose Ketones Leukocytes Nitrite Labor Signs Protein Cervic Dilation Cervic Effacement Cervic Station none none neg Type Weight in lbs Pre/Post Dialysis Refused Weight 109.073532540929 BP Diastolic BP Location Tested BP Systolic BP Type 58 L arm 98 sitting Fetus Heart Rate Present A 156 Fetus Movement Comments Flowsheet Date 05/03/2021 Alvarenga Score Blood Edema Fundus Height Fundus Units Glucose Ketones Leukocytes Nitrite Labor Signs Protein Cervic Dilation Cervic Effacement Cervic Station none none neg Type Weight in lbs Pre/Post Dialysis Refused With clothes 113.434708886972 BP Diastolic BP Location Tested BP Systolic BP Type 62 L arm 106 sitting Fetus Heart Rate Present A 157 Fetus Movement Comments sharp lower abdominal cramps , occasionally on the side. No bleeding. Rec incr fluids, maternity belt. SAB precautions reviewed. Flowsheet Date 05/09/2021 Alvarenga Score Blood Edema Fundus Height Fundus Units Glucose Ketones Leukocytes Nitrite Labor Signs Protein Cervic Dilation Cervic Effacement Cervic Station none none neg Type Weight in lbs Pre/Post Dialysis Refused Weight 114.464772515052 BP Diastolic BP Location Tested BP Systolic BP Type 70 110 Fetus Heart Rate Present Fetus Movement A Yes Comments Flowsheet Date 05/16/2021 Alvarenga Score Blood Edema Fundus Height Fundus Units Glucose Ketones Leukocytes Nitrite Labor Signs Protein Cervic Dilation Cervic Effacement Cervic Station none none neg Type Weight in lbs Pre/Post Dialysis Refused Weight 115.290034983699 BP Diastolic BP Location Tested BP Systolic BP Type 70 108 Fetus Heart Rate Present A 153 Present Fetus Movement Comments Pt c/o bleeding after interc ourse. CL 3.5cm, placenta >2 cm from os. Advised sureswab and speculum exam today. Patient declined. Pelvic rest x2 weeks and RTC for BASILIA and TVUS F/U. Anatomy scan complete. S/S PTL and preeclampsia reviewed and when to seek care. Flowsheet Date 05/30/2021 Alvarenga Score Blood Edema Fundus Height Fundus Units Glucose Ketones Leukocytes Nitrite Labor Signs Protein Cervic Dilation Cervic Effacement Cervic Station none none neg Type Weight in lbs Pre/Post Dialysis Refused Weight 117.808308989117 BP Diastolic BP Location Tested BP Systolic BP Type 62 108 Fetus Heart Rate Present A 151 Fetus Movement Comments CL 3.94. Patient states no m ore bleeding or discomfort. Resumed normal BASILIA. S/S PTL, vaginal bleeding, return to normal BASILIA interval care. Flowsheet Date 06/13/2021 Alvarenga Score Blood Edema Fundus Height Fundus Units Glucose Ketones Leukocytes Nitrite Labor Signs Protein Cervic Dilation Cervic Effacement Cervic Station none 24 cm none none neg Type Weight in lbs Pre/Post Dialysis Refused Weight 122.152117629827 BP Diastolic BP Location Tested BP Systolic BP Type 58 100 Fetus Heart Rate Present A 145 Present Fetus Movement A Yes Comments Flowsheet Date 07/11/2021 Alvarenga Score Blood Edema Fundus Height Fundus Units Glucose Ketones Leukocytes Nitrite Labor Signs Protein Cervic Dilation Cervic Effacement Cervic Station none 28 none Backpain neg Type Weight in lbs Pre/Post Dialysis Refused Weight 124.676542826957 BP Diastolic BP Location Tested BP Systolic BP Type 60 110 Fetus Heart Rate Present A 145 Fetus Movement A Yes Comments 07/11/21: 28 week labs today, complained of right side facial eye twitching and numbness after inserting new contacts Flowsheet Date 07/25/2021 Alvarenga Score Blood Edema Fundus Height Fundus Units Glucose Ketones Leukocytes Nitrite Labor Signs Protein Cervic Dilation Cervic Effacement Cervic Station none 27 cm none Backpain neg Type Weight in lbs Pre/Post Dialysis Refused Weight 128.175553797648 BP Diastolic BP Location Tested BP Systolic BP Type 60 110 Fetus Heart Rate Present A 145 Present Fetus Movement A Yes Comments 4D and growth US next visit. Flowsheet Date 08/08/2021 Alvarenga Score Blood Edema Fundus Height Fundus Units Glucose Ketones Leukocytes Nitrite Labor Signs Protein Cervic Dilation Cervic Effacement Cervic Station none 32 cm none neg Type Weight in lbs Pre/Post Dialysis Refused With clothes 130.158004011542 BP Diastolic BP Location Tested BP Systolic BP Type 60 R arm 110 sitting Fetus Heart Rate Present A 151 Fetus Movement A Yes Comments 08/08/21: Growth US today 3lb s, 12oz, 17.4 percentile, small humerus and femur repeat US in for growth in 2 weeks, PA sent. Flowsheet Date 08/24/2021 Alvarenga Score Blood Edema Fundus Height Fundus Units Glucose Ketones Leukocytes Nitrite Labor Signs Protein Cervic Dilation Cervic Effacement Cervic Station none neg Type Weight in lbs Pre/Post Dialysis Refused Weight 129.208115692592 BP Diastolic BP Location Tested BP Systolic BP Type 60 L arm 118 sitting Fetus Heart Rate Present Fetus Movement Comments Flowsheet Date 09/05/2021 Alvarenga Score Blood Edema Fundus Height Fundus Units Glucose Ketones Leukocytes Nitrite Labor Signs Protein Cervic Dilation Cervic Effacement Cervic Station none 36 none none neg 1cm 50% -2 Type Weight in lbs Pre/Post Dialysis Refused With clothes 132.711365618321 BP Diastolic BP Location Tested BP Systolic BP Type 64 L arm 110 sitting Fetus Heart Rate Present A 157 Fetus Movement A Yes Comments 09/05/21:GBS today, patient d esires to , risks discussed. less than 1% chance of uterine rupture Flowsheet Date 09/14/2021 Alvarenga Score Blood Edema Fundus Height Fundus Units Glucose Ketones Leukocytes Nitrite Labor Signs Protein Cervic Dilation Cervic Effacement Cervic Station none 37 cm none none neg 1cm 60% -2 Type Weight in lbs Pre/Post Dialysis Refused Weight 135.17122999289 BP Diastolic BP Location Tested BP Systolic BP Type 76 118 Fetus Heart Rate Present A 145 Fetus Movement A Yes Comments 09/14/21: labor precautions d iscussed, GBS negative Flowsheet Date 09/28/2021 Alvarenga Score Blood Edema Fundus Height Fundus Units Glucose Ketones Leukocytes Nitrite Labor Signs Protein Cervic Dilation Cervic Effacement Cervic Station Type Weight in lbs Pre/Post Dialysis Refused Weight 122.728616839565 BP Diastolic BP Location Tested BP Systolic BP Type 70 114 Fetus Heart Rate Present Fetus Movement Comments Flowsheet Date 10/28/2021 Alvarenga Score Blood Edema Fundus Height Fundus Units Glucose Ketones Leukocytes Nitrite Labor Signs Protein Cervic Dilation Cervic Effacement Cervic Station Type Weight in lbs Pre/Post Dialysis Refused Weight 120.410319833289 BP Diastolic BP Location Tested BP Systolic BP Type 60 110 sitting Fetus Heart Rate Present Fetus Movement Comments Menstrual History Last Menstrual Date Menses Monthly On Bcp Conception Prior Menses Frequency Hcg Plus Date Menarche Onset Age Genetic Screening And Infection History Question Response Note Recent Travel History Outside of Country false Cystic Fibrosis false Any Other Genetic History false Reece Disease false Other Infection History false Thalassemia (Sao Tomean, Taiwanese, Mediterranean, Or Background): MCV < 80 false Patient Or Baby's Father Had A Child With Defects Not Listed Above false Live With Someone With TB Or Exposed To TB false Patient's Age Will Be 35 Years Or Older At Estim ated Date of Delivery false Recurrent Loss, Or A Stillbirth false Hemoglobinopathy Or Carrier false Patient Or Partner Has History Of Genital Herpes false Intellectual Disability/Autism false Maternal Metabolic Disorder (eg, Type 1 Diabetes , PKU) false History of Hepatitis false Jesse-Sachs (eg, Baptist, Cajun, Citizen Of [place]) f alse History Of STD, Gonorrhea, Chlamydia, HPV, Syphi lis false Prior GBS-infected child false History of HIV false Personal or Family History o f Neural Tube Defect (Meningomyelocele, Spina Bifida, Or Anencephaly) false Hemophilia Or Other Blood Disorders false Mental Retardation/Autism false Sequoyah's Chorea false If Yes, Was Person Tested For Fragile X? false Other Inherited Genetic Or Chromosomal Disorder false If Yes, Agent(s) And Strength/Dosage false Sickle Cell Disease Or Trait () false Personal or Family History of Congenital Heart D efect false Rash Or Viral Illness Since Last Menstrual Perio d false Muscular Dystrophy false Medications (including Suppl ements, Vitamins, Herbs, OTC Drugs), Illicit/Recreational Drugs, Alcohol false Other Structural Defect false Down Syndrome false Delivery Information Delivery Date Delivery Type Labor Anesthesia Weeks Gestation Incision Type Labor Labor Length Hrs Delivered By Post Complications Tubal Sterilization Discharge Date Comments [facility] inal 24.3 Low Transvers e false Rica Robbins DO None false 09/17/2021 Discharge Information Feeding Method Contraceptive Method Maternal HG B and HCT Levels Ob Episode Information Episode Created Date Number of Fetuses Patient Bloodtype Patient rh Status Prepregnancy Weight lbs Domestic Partner Domestic Partner Phone Father Name Boring Machine Set Up Operator Jig Status 12/25/19 25 1 CLOSED Fetus Data First Name Last Name Admitted to NICU Weight (g) Sex Living Outcome Pediatric Complications Fetus ID Race Codes Race Delivery Type M Full Term [id number] Repeat Sacha Calculation Initial Sacha Date Initial Exam Date Initial Exam Provider Initial Ultrasound Date Last Menstrual Period Date Ultra Sound Weeks Gestation 0 Eighteen To Twenty Week Sacha Update Ultra Sound Date Fundal Height At Umbil Quickening Date Ultra Sound Latest Weeks Gestation Final Sacha Confirmed By Final Sacha Confirmed Date Final Sacha Date Ultra Sound Latest Days Gestation 0 0 Menstrual History Last Menstrual Date Menses Monthly On Bcp Conception Prior Menses Frequency Hcg Plus Date Menarche Onset Age Delivery Information Delivery Date Delivery Type Labor Anesthesia Weeks Gestation Incision Type Labor Labor Length Hrs Delivered By Post Complications Tubal Sterilization Discharge Date Comments 4 Discharge Information Feeding Method Contraceptive Method Maternal HG B and HCT Levels
--- OUTSIDE RECORDS SUMMARY | 2025-03-03 15:55 | XMS_ITS | Clinical Summary ---
Author Organization [facility] Address [address] [place] [address] Care Team Providers Care Highway Commissioner Name Role Phone Unavailable Primary Care Provider Unavailabl e Allergies No known active allergies Medications No known medications Active Problems Problem Noted Date Diagnosed Date Anxiety 01/04/2023 Full-term premature rupture of membranes with onset of labor within 24 hours of rupture 09/15/2021 PROM with onset of labor within 24 hours of rupt ure 09/15/2021 Social History Tobacco Use Types Packs/Day Years Used Date Smoking Tobacco: Never Alcohol Use Standard Drinks/Week Comments Never 0 (1 standard drink = 0.6 oz pur e alcohol) Comments Unknown Sex and Gender Information Value Date Recorded Sex Assigned at Not on file Legal Sex Female 1:03 PM CDT Gender Identity Not on file Sexual Orientation Not on file Last Filed Vital Signs Vital Sign Reading Time Taken Comments Blood Pressure 92/62 01/04/2023 11:28 AM CDT Pulse 66 01/04/2023 11:28 AM CDT Temperature - - Respiratory Rate 16 01/04/2023 11:28 AM CDT Oxygen Saturation 99% 01/04/2023 11:28 AM CDT Inhaled Oxygen Concentration - - Weight 52.2 kg (115 lb) 01/04/2023 11:28 AM CDT Height 162.6 cm (5' 4) 01/04/2023 11:28 AM CDT Body Mass Index 19.74 01/04/2023 11:28 AM CDT Plan of Treatment Health Maintenance Due Date Last Done Comments HPV/Cotest (21-29) 2014 HPV VACCINES (1 - 3-dose SCD M series) 2020 CERVICAL CANCER SCREENING 06/25/2023 HPV/Cotest (30-65) 06/25/2023 PAP SMEAR 06/25/2023 INFLUENZA VACCINE (#1) 2024 DTAP/TDAP/TD VACCINES (6 - T d or Tdap) 01/11/2030 01/12/2020, 07/04/1995, 03/21/1994, Additional history exists HEPATITIS B VACCINES Completed 08/14/1994, 01/13/1994, 1993 Insurance [facility]
--- OUTSIDE RECORDS SUMMARY | 2025-03-03 15:55 | XMS_ITS | Encounter Summary ---
Author Organization [facility] Address [address] [place] [address] Care Team Providers Care Access Registrar Name Role Phone Ashley Silvestre MD Primary Care Provider [phone] Encounter Details Date Type Department Care Team (Late st Contact Info) Description 03/11/2021 [employer] Message Enc [facility] Family Medicine [facility] [address] [place] [address] Ashley Silvestre MD [address] [place] [id number] Blood test for Social History Tobacco Use Types Packs/Day Years [...] on file Sexual Orientation Not on file COVID-19 Exposure Response Date Recorded In the last month, have you been in contact with someone who was confirmed or suspected to have Coronavirus / COVID-19? No / Unsure 03/10/2021 2:54 PM MIRROR INSPECTOR documented as of this encounter Progress Notes * Ashley Silvestre MD - 03/14/2021 2:21 PM CST Called pt this morning and updated her. Please see my telephone note for more specifics. Thanks! ~Dr Valle OR INSPECTOR documented in this encounter Plan of Treatment Not on file documented as of this encounter Visit Diagnoses Not on filedocumented in this encounter Additional Health Concerns Assessment Noted Time PHQ-9 Depression Total Score: 4 03/10/20 3:28 PM MIRROR INSPECTOR documented as of this encounter Care Teams Access Registrar Relationship Specialty Start Date End Date Ashley Silvestre MD [address] [place] [address] PCP - General FAMILY PRACTICE 03/10/21 documented as of this encounter
[2025-03-03 16:46] LABS: Hematocrit 40.1 % (37.0-47.0); Hemoglobin 13.0 g/dL (12.0-15.0); Mean Corpuscular HGB Conc 32.4 g/dl (32-36); Mean Corpuscular Hemoglobin 29.0 pg (26-34); Mean Corpuscular Volume 89.5 fl (80-100); Platelet Count Result 247 k/mm3 (150-375); Red Blood Count 4.48 M/mm3 (4.2-5.4); White Blood Count 5.0 K/mm3 (4.5-10.0)
[2025-03-03 16:49] LABS: Add Urine Microscopic? NO; Appearance Urine Clear (Clear); Glucose Urine UA Negative (Negative); Leukocyte Esterase Ur Negative LEU/UL (Negative); Nitrate Urine Negative (Negative); Specific Grav Ur 1.006 (1.001-1.035)
[2025-03-03 17:00] LABS: Alanine Aminotransferase 30 U/L (6-35); Albumin Level 4.6 g/dL (3.5-5.1); Alkaline Phosphatase 49 U/L (38-126); Anion Gap 8 mmol/L (4-12); Aspartate Amino Transferase 39 U/L (14-36); Bilirubin,Total 0.6 mg/dL (0.2-1.3); Blood Urea Nitrogen 11 mg/dL (7-17); Calcium 9.0 mg/dL (8.4-10.2); Carbon Dioxide 24 mmol/L (22-30); Chloride 106 mmol/L (98-107); Cholesterol 180 mg/dL (0-200); Estimated Glomerular Filt Rate > 60; Glucose 99 mg/dL (65-110); HDL Direct 60 mg/dL; Potassium 3.9 mmol/L (3.4-5.0); Sodium 138 mmol/L (137-145); Total Protein 7.9 g/dL (6.3-8.2); Triglycerides 53 mg/dL (<150)
[2025-03-03 17:13] LABS: Hemoglobin A1C 4.9 % (<5.7)
[2025-03-03 17:19] LABS: Free T4 Free Thyroxine 1.14 ng/dL (0.78-2.19)
[2025-03-03 17:31] LABS: Thyroid Stimulating Hormone 0.487 uIU/mL (0.465-4.680)
[2025-03-03 17:59] LABS: Vitamin B12 > 1000.0 pg/mL (239-931)
== END 2025-03-03 15:32 | disposition home or self-care (01) ==
PROVIDERS: PCP Nurse Practitioner Family; Visit Provider Nurse Practitioner Family
DX: R07.9 Chest pain, unspecified (principal); R53.83 Other fatigue; E78.5 Hyperlipidemia, unspecified; Z13.29 Encounter for screening for other suspected endocrine disorder; Z11.59 Encounter for screening for other viral diseases; Z13.21 Encounter for screening for nutritional disorder; N39.0 Urinary tract infection, site not specified
CPT/HCPCS: 36415; 80053; 80061; 81003; 82306; 82607; 83036; 84439; 84443; 85027; 86803